=== PATIENT | female | born 1950 | race Caucasian/White ===

== ENCOUNTER 2019-10-01 06:44 | Emergency (ER) | payer MEDICARE ==
[~2019-10-01] VITALS: Ht 152.4 cm; Wt 181.4 kg
[2019-10-01 06:46] VITALS: Ht 152.4 cm; Wt 181.4 kg
[2019-10-01 08:37] LABS: BILIRUBIN NEGATIVE (NEGATIVE); GLUCOSE NEGATIVE (NEGATIVE); KETONE NEGATIVE (NEGATIVE); NITRITE POSITIVE (NEGATIVE); RED CELLS - URINE 25-50 /hpf (0-5); SPECIFIC GRAVITY 1.005 (1.005-1.020); UROBILINOGEN NORMAL (NORMAL); WHITE CELLS - URINE 25-50 /hpf (NEGATIVE)
[2019-10-01 08:38] LABS: BACTERIA MANY /hpf (NEGATIVE); EPITHELIAL CELLS 0-5 /hpf (0-5); HYALINE CAST OCC /lpf (NONE SEEN)
[2019-10-01] MEDS ORDERED: KEFLEX500 MG PO (08:48)
[2019-10-01] MEDS ORDERED: MACROBID100 MG PO (08:48)
[2019-10-01 10:30] VITALS: BP 141/70
== END 2019-10-01 10:45 | disposition home or self-care (01) ==
LOC: D.ER 06:44
PROVIDERS: Family Medicine
DX: T83.038A Leakage of other urinary catheter, initial encounter (principal); N39.0 Urinary tract infection, site not specified

== ENCOUNTER 2019-10-14 20:46 | Emergency (ER) | payer MEDICARE ==
[~2019-10-14] VITALS: Ht 152.4 cm; Wt 136.4 kg
[~2019-10-14 20:46] MED LIST: KEFLEX500 MG PO; MACROBID100 MG PO
[2019-10-14 20:54] VITALS: Ht 152.4 cm; Wt 136.4 kg
[2019-10-15 00:15] VITALS: BP 152/79
== END 2019-10-15 00:15 | disposition home or self-care (01) ==
LOC: D.ER 20:46
DX: T83.038A Leakage of other urinary catheter, initial encounter (principal)

== ENCOUNTER 2019-10-30 15:53 | Emergency (ER) | payer MEDICARE ==
[~2019-10-30] VITALS: Ht 152.4 cm; Wt 159.1 kg
[2019-10-30 16:04] VITALS: Ht 152.4 cm; Wt 159.1 kg
[2019-10-30 18:36] LABS: BACTERIA MANY /hpf (NEGATIVE); BILIRUBIN NEGATIVE (NEGATIVE); EPITHELIAL CELLS 0-5 /hpf (0-5); GLUCOSE NEGATIVE (NEGATIVE); KETONE NEGATIVE (NEGATIVE); NITRITE POSITIVE (NEGATIVE); RED CELLS - URINE 0-5 /hpf (0-5); SPECIFIC GRAVITY 1.015 (1.005-1.020); UROBILINOGEN NORMAL (NORMAL); WHITE CELLS - URINE 25-50 /hpf (NEGATIVE)
[2019-10-30] MEDS ORDERED: KEFLEX500 MG PO (18:47)
[2019-10-30 20:17] VITALS: BP 130/67
== END 2019-10-30 20:17 | disposition home or self-care (01) ==
LOC: D.ER 15:53
PROVIDERS: Family Medicine
DX: T83.518A Infection and inflammatory reaction due to other urinary catheter, initial encounter (principal); N39.0 Urinary tract infection, site not specified